=== PATIENT | male | born 1965 | race Caucasian/White ===

== ENCOUNTER 2021-01-01 14:46 | Emergency (ER) | payer BC, SELFPAY ==
[2021-01-01 14:50] VITALS: BP 174/117; PULSE 94; RESP 18; TEMP 37.2; O2SAT 99; BMI 28.5
--- NOTE | 2021-01-01 16:30 | ED.GENADULT ---
HPI - General Adult General Chief complaint: Extremity Injury, Lower Stated complaint: water in knee Time Seen by Provider: 01/01/21 16:10 Source: patient Mode of arrival: ambulatory Limitations: no limitations History of Present Illness HPI narrative: 55 y/o male with history of osteoarthritis of the right knee and history of knee effusion about 2 years ago who presents to the ER with 2 days of right knee swelling and pain, worse with ambulation and flexion. No fevers, no erythema or warmth of the joint. He has been taking Motrin without any improvement. His prior knee effusion was treated with NSAID and supportive care, no drainage. He denies any recent injury or trauma. No history of gout. He reports when he tries to ambulate his hamstring muscle spasms severely and makes it hard for him to walk. He has been using a cane to get around. MD complaint: swollen right knee with pain Onset (ago): day(s) (2) Location: right and lower extremity Radiation: non-radiation Severity: moderate and similar to prior episodes Severity scale (1-10): 4 Quality: aching Pain Consistency: intermittent Relieving factors: rest Exacerbating factors: movement Associated symptoms: denies other symptoms Treatments prior to arrival: NSAID Related Data Previous Rx's Medication Instructions Recorded cyclobenzaprine 10 mg PO TID PRN #7 tab 01/01/21 hydrocodone-acetaminophen 1 tab PO Q8H PRN #6 tab 01/01/21 indomethacin 75 mg PO DAILY #14 cap 01/01/21 Allergies Allergy/AdvReac Type Severity Reaction Status Date / Time No Known Allergies Allergy Verified 01/01/21 14:50 Review of Systems Review of Systems: Constitutional: No Fever, No Chills Respiratory: No Cough, No Sputum, No Wheezing, No dyspnea Gastrointestinal: No Nausea, No Vomiting, No abdominal Pain Musculoskeletal: + joint pain, + Myalgias Skin: No Skin Lesions, No rash Neuro: No Weakness, No Numbness Heme/Lymph: No Bruising, No Lymphadenopathy PMFSH Past Medical History Medical History (Updated 01/01/21 @ 16:30 by ALONZO Sauceda) No active medical problems Social History Social History Advance Directives: No Advance Directives Information Provided: Yes Physical Exam Vital Signs: Vital Signs: Last Vital Signs Temp 99.0 F 01/01/21 14:50 Pulse 94 01/01/21 14:50 Resp 18 06/23/21 14:50 BP 174/117 H 01/01/21 14:50 Pulse Ox 99 01/01/21 14:50 Body Mass Index 28.5 Appearance: Alert. Oriented X3. No acute distress. HEENT: normal inspection CVS: Normal heart rate and rhythm. Pulses normal. Respiratory: No respiratory distress. Skin: Skin warm and dry. Normal skin color. Normal skin turgor. No rashes. Extremities: right knee with suprapatellar swelling, no erythema or warmth. palpable effusion superiorly, pain with flexion past 90 degrees and full extension. No calf pain or tenderness, no erythema Neuro: Oriented X 3. No motor deficit. No sensory deficit. Ambulates with limping gait with use of cane Course Course Course Narrative: 55 y/o male presenting with recurrent right knee effusion, non-traumatic. Clinical exam does not support infection or gout. Patient declined XR's at this time. No arthrocentesis warranted. Will treat conservatively with NSAID, muscle relaxer, KONRAD wrap and PRN [place] for severe pain. He was encouraged to f/u with Orthopedics for further management. Patient agrees with plan. Critical Care Time Critical Care Time Critical Care Time: No Discharge Plan Discharge Clinical Impression: Effusion of knee joint right Patient Disposition: Home, Self-Care Instructions: Swollen Knee Joint (ED) Additional Instructions: Your exam is consistent with fluid on the knee. No signs of infection at this time. Use ice several times per day for 20 minutes at a time for the next 48 hours. Use KONRAD wrap for compression and support. Elevate you knee/leg when possible. Take medications as prescribed to help with pain and discomfort. Follow up with your Primary Care Doctor this week. Follow up with Orthopedics if the swelling and pain persist. If your pain worsens, or if you develop red, hot knee joint or fevers come back to the ER right away for further evaluation. Prescriptions: New indomethacin 75 mg capsule, extended release 75 mg PO DAILY Qty: 14 RF: 0 cyclobenzaprine 10 mg tablet 10 mg PO TID PRN (Reason: muscle spasm) Qty: 7 RF: 0 hydrocodone-acetaminophen 5-325 mg tablet 1 tab PO Q8H PRN (Reason: pain) Qty: 6 RF: 0 Referrals: Raúl Son MD [Physician] - 5 days (knee effusion)
== END 2021-01-01 17:20 | disposition home or self-care (01) ==
PROVIDERS: Emergency Provider Emergency Medicine
DX: M25.461 Effusion, right knee (principal)
CPT/HCPCS: 99283

== ENCOUNTER 2021-01-05 14:38 | Emergency (ER) | payer BC, SELFPAY ==
--- NOTE | ~2021-01-05 | US_ITS ---
EXAMINATION: US VENOUS ULTRASOUND WITH DOPPLER LOWER EXTREMITY, RIGHT CLINICAL INFORMATION: Swelling pain evaluate for DVT COMPARISON: None TECHNIQUE: Ultrasound of the deep veins is performed from the hip to the calf with compression sonography and color and pulse Doppler assessment. Spectral analysis with color-flow imaging is performed. FINDINGS: There is normal venous compression and respiratory variation and augmented flow. The visualized common femoral vein, superficial femoral vein, profunda femoral vein, popliteal vein, and the trifurcation region shows no evidence of deep venous thrombosis. However there is thrombus in the gastrocnemius vein. There is no significant popliteal fossa cyst. US/US venous duplex LE RT IMPRESSION: Thrombus noted in the right gastrocnemius vein This critical result was discussed with Peggy Littlejohn at approximately 4:20 PM on 01/05/2021 and it was ascertained that the content and urgency of the report was understood at the time of direct communication.
--- NOTE | ~2021-01-05 | XR_ITS ---
EXAMINATION: XR KNEE, RIGHT CLINICAL INFORMATION: Pain COMPARISON: None TECHNIQUE: Four views of the right knee. FINDINGS: No evidence for fracture or dislocation. There is an effusion present. Mild patellofemoral degeneration. The medial lateral joint spaces are fairly well-preserved. XR/XR knee RT 3V IMPRESSION: Positive joint effusion. No acute bony finding.
[2021-01-05 14:48] VITALS: BP 148/80; PULSE 88; RESP 16; TEMP 36.4; O2SAT 98; BMI 29.9
--- NOTE | 2021-01-05 15:38 | ED.LOWEXIN ---
HPI - Extremity Injury (Lower) General Chief Complaint: Extremity Injury, Lower <Violetta Ge NP - Last Filed: 01/05/21 17:04> Stated Complaint: R LEG INFLAMATION <RISA Casas Last Filed: 01/05/21 17:04> Time Seen by Provider: 01/05/21 15:09 <Violetta Ge NP - Last Filed: 01/05/21 17:04> Source: patient <RISA Casas Last Filed: 01/05/21 17:04> Mode of arrival: ambulatory <RISA Casas Last Filed: 01/05/21 17:04> Limitations: no limitations <RISA Casas Last Filed: 01/05/21 17:04> History of Present Illness HPI Narrative: 55-year-old male with a past medical history of prior right knee injury with subsequent knee effusion here with complaints of right knee pain and swelling in addition to right lower calf pain and swelling for the last week. he tells me he was seen here on Wednesday and was prescribed a muscle relaxants, anti-inflammatories and pain medication and also provided with a referral to Orthopedics. He tells me he has been using the medications, topical CBD, ice and a cane for ambulation with continued pain and swelling. He has not called Orthopedics for follow-up yet. He feels like his knee is improving but his right calf is more swollen and more painful. No shortness of breath or chest pain. No history of DVTs. <RISA Casas Last Filed: 01/05/21 17:04> Related Data Home Medications: Previous Rx's Medication Instructions Recorded cyclobenzaprine 10 mg PO TID PRN #7 tab 01/01/21 hydrocodone-acetaminophen 1 tab PO Q8H PRN #6 tab 01/01/21 indomethacin 75 mg PO DAILY #14 cap 01/01/21 apixaban [Eliquis DVT-PE Treat 30D See Rx Instructions .ROUTE 01/05/21 Start] .COMPLEX #74 ea <RISA Casas Last Filed: 01/05/21 17:04> Allergies/Adverse Reactions: Allergies Allergy/AdvReac Type Severity Reaction Status Date / Time No Known Allergies Allergy Verified 01/01/21 14:50 <Violetta Ge NP - Last Filed: 01/05/21 17:04> Review of Systems Review of Systems: Yes all other systems are reviewed and are negative <Violetta Ge NP - Last Filed: 01/05/21 17:04> Constitutional: Constitutional: Reports no additional constitutional complaints, Denies body ache(s), Denies chills, Denies fever(s), Denies headache(s) and Denies weakness <Violetta Ge NP - Last Filed: 01/05/21 17:04> Eyes: Eyes: Reports no additional eye complaints and Denies change in vision <Violetta Ge NP - Last Filed: 01/05/21 17:04> ENT: Reports system reviewed and no additional complaints, except as documented, Denies dizziness, Denies headache(s), Denies nasal congestion, Denies nasal discharge and Denies neck pain <Violetta Ge NP - Last Filed: 01/05/21 17:04> Cardiovascular: Cardiovascular: Reports no additional cardiovascular complaints, Denies chest pain, Reports leg edema and Denies dyspnea <Violetta Ge NP - Last Filed: 01/05/21 17:04> Respiratory: Respiratory: Reports no additional respiratory complaints, Denies cough and Denies dyspnea <Violetta Ge NP - Last Filed: 01/05/21 17:04> Gastrointestinal: Gastrointestinal: Reports no additional gastrointestinal complaints, Denies abdominal pain, Denies diarrhea, Denies nausea and Denies vomiting <Violetta Ge NP - Last Filed: 01/05/21 17:04> Genitourinary: Genitourinary: Denies urinary incontinence <Violetta Ge NP - Last Filed: 01/05/21 17:04> Musculoskeletal: Musculoskeletal: Reports no additional musculoskeletal complaints, Denies back pain, Reports arthralgias, Reports joint swelling, Denies neck pain, Denies numbness and Denies tingling <Violetta Ge NP - Last Filed: 01/05/21 17:04> Integumentary/Breasts: Skin/Breast: Reports system reviewed and no additional complaints, except as docu and Denies rash <Violetta Ge NP - Last Filed: 01/05/21 17:04> Neurologic: Reports system reviewed and no additional complaints, except as documented, Denies Abnormal speech present, Denies dizziness, Denies headache(s), Denies numbness, Denies tingling and Denies weakness <Violetta Ge NP - Last Filed: 01/05/21 17:04> [facility] Past Medical History Attestation statement: The following information was validated with the patient. <Violetta Ge NP - Last Filed: 01/05/21 17:04> Source: old records reviewed and nursing notes reviewed <Violetta Ge NP - Last Filed: 01/05/21 17:04> Medical History: Medical History No active medical problems <Violetta Ge NP - Last Filed: 01/05/21 17:04> Social History Social History: Social History Advance Directives: Yes Advance Directives Information Provided: No Advance Directives on File: No <Violetta Ge NP - Last Filed: 01/05/21 17:04> Physical Exam Vital Signs: Vital Signs: Last Vital Signs Temp 97.6 F 01/05/21 14:48 Pulse 74 01/05/21 18:16 Resp 14 01/05/21 18:16 BP 160/69 H 01/05/21 18:16 Pulse Ox 100 01/05/21 18:16 Body Mass Index 29.9 <Violetta Ge NP - Last Filed: 01/05/21 17:04> Vital Signs: Last Vital Signs Temp 97.6 F 01/05/21 14:48 Pulse 74 01/05/21 18:16 Resp 14 01/05/21 18:16 BP 160/69 H 01/05/21 18:16 Pulse Ox 100 01/05/21 18:16 Body Mass Index 29.9 <Santiago Walker NP - Last Filed: 01/05/21 18:23> Const: General: cooperative, healthy appearing, comfortable and no acute distress <Violetta Ge NP - Last Filed: 01/05/21 17:04> Orientation/consciousness: patient oriented x3 <Violetta Ge NP - Last Filed: 01/05/21 17:04> Limitations: no limitations <Violetta Ge NP - Last Filed: 01/05/21 17:04> HENMT: Head: Yes normal to inspection <Violetta Ge NP - Last Filed: 01/05/21 17:04> Ears: hearing grossly normal bilaterally <Violetta Ge NP - Last Filed: 01/05/21 17:04> General nose exam: Normal external nose present <Violetta Ge NP - Last Filed: 01/05/21 17:04> Face and sinus: Yes normal facial exam <Violetta Ge NP - Last Filed: 01/05/21 17:04> Mouth: Normal oral and palatal mucosa present <Violetta Ge NP - Last Filed: 01/05/21 17:04> Throat: Yes posterior oropharynx normal <Violetta Ge NP - Last Filed: 01/05/21 17:04> Eyes: General: appearance normal, both eyes and all related structures <Violetta Ge NP - Last Filed: 01/05/21 17:04> Pupils: Equal, round and reactive pupils present <Violetta Ge NP - Last Filed: 01/05/21 17:04> Neck: Neck: Yes normal visual inspection <Violetta Ge NP - Last Filed: 01/05/21 17:04> Chest: Chest palpation & inspection: normal inspection of the chest <Violetta Ge NP - Last Filed: 01/05/21 17:04> Resp: Effort & Inspection: normal respiratory effort <Violetta Ge NP - Last Filed: 01/05/21 17:04> Auscultation: clear to auscultation bilaterally <Violetta Ge NP - Last Filed: 01/05/21 17:04> Cardio: Rate: regular rate <Violetta Ge NP - Last Filed: 01/05/21 17:04> Rhythm: regular rhythm <Violetta Ge NP - Last Filed: 01/05/21 17:04> Peripheral pulses: Peripheral pulses 2+ throughout <Violetta Ge NP - Last Filed: 01/05/21 17:04> GI: Inspection: Yes normal to inspection <Violetta Ge NP - Last Filed: 01/05/21 17:04> Palpation (GI): Soft to palpation and nontender <Violetta Ge NP - Last Filed: 01/05/21 17:04> Auscultation: normal bowel sounds <Violetta Ge NP - Last Filed: 01/05/21 17:04> Back/Spine/Pelvis: Thoracic/Lumbar Spine: thoracic and lumbar spine normal to inspection <Violetta Ge NP - Last Filed: 01/05/21 17:04> Skin: General skin exam: no rashes or lesions noted <Violetta Ge NP - Last Filed: 01/05/21 17:04> Neuro: General: patient oriented x3, no focal motor deficits and normal sensation to monofilament <Violetta Ge NP - Last Filed: 01/05/21 17:04> Cranial nerves: Yes Equal, round and reactive pupils present <Violetta Ge NP - Last Filed: 01/05/21 17:04> Cognition (Neuro): normal cognition <Violetta Ge NP - Last Filed: 01/05/21 17:04> Speech: No Abnormal speech present <Violetta Ge NP - Last Filed: 01/05/21 17:04> Gait exam (Neuro): Normal gait present <Violetta Ge NP - Last Filed: 01/05/21 17:04> Motor exam (neuro): 5/5 motor strength present throughout <Violetta Ge NP - Last Filed: 01/05/21 17:04> Extrem: Other: To the right knee there is no effusion present. There is no warmth, redness noted. The patient is able to flex and extend the knee although it is painful. He does have swelling to the right posterior calf with pain and some scant edema noted around the right ankle. Palpable pulses distal. No reported paresthesias. <Violetta Ge NP - Last Filed: 01/05/21 17:04> General: Yes normal to inspection <Violetta Ge NP - Last Filed: 01/05/21 17:04> Course Course Course Narrative: 55-year-old male here with right knee and right calf swelling and pain for the last week with no known injury or trauma. Will check x-ray, ultrasound. - ultrasound shows a thrombus in the right gastroc vein. D/w with Dr Danielson attending. Patient will need 3 months of anticoagulation. Will check labs with renal function. Then if normal will give 30 days of eliquis. Patient will need additional 2 months from PCP. Lengthy discussion with patient about starting anticoagulation with risks versus benefits. Patient is agreeable. 1700-Sign out to [facility] RISA pending labs. <Violetta Ge NP - Last Filed: 01/05/21 17:04> Reevaluation(s) Reevaluation #1: labs overall stable. Does not require adjustment of anticoagulant. Prescription sent already again precaution indication follow-up return instructions provided. Stable for discharge. <Santiago Walker NP - Last Filed: 01/05/21 18:23> MDM - Extremity Injury (Lower) Medical Records Attestation: I reviewed the patient's medical records. <Violetta Ge NP - Last Filed: 01/05/21 17:04> Lab Data Attestation: I reviewed the patient's lab results. <Violetta Ge NP - Last Filed: 01/05/21 17:04> Result diagrams: : 01/05/21 16:40 01/05/21 16:40 <Violetta Ge NP - Last Filed: 01/05/21 17:04> Labs: Lab Results 01/05/21 01/05/21 01/05/21 Range/Units 16:40 16:40 16:40 WBC 7.9 (4.8-10.8) X10*3/uL RBC 4.21 L (4.60-5.80) X10*6/uL Hgb 13.5 L (14.0-18.0) g/dl Hct 39.5 L (42-52) % MCV 93.8 (80-98) fL MCH 32.1 (27.0-33.0) pg MCHC 34.2 (31.0-36.0) g/dl RDW 11.4 (11.0-16.0) % Plt Count 191 (160-400) X10*3/uL MPV 10.9 (9.4-12.4) fL Immature Gran % (Auto) 0.1 (0.0-0.4) % Neut % (Auto) 66.7 (45-73) % Lymph % (Auto) 21.2 (20-40) % [place] % (Auto) 10.0 (2-11) % Eos % (Auto) 1.5 (0-4) % Baso % (Auto) 0.5 (0-2) % Lymph # (Auto) 1.7 (1.2-4.9) X10*3/uL [place] # (Auto) 0.8 (0.1-1.2) X10*3/uL Eos # (Auto) 0.1 (0.0-0.4) X10*3/uL Baso # (Auto) 0.0 (0.0-0.2) X10*3/uL Abs Immat Gran (auto) 0.01 (0.00-0.03) X10*3/uL Absolute Neuts (auto) 5.3 (2.0-8.3) X10*3/uL Absolute Nucleated RBC 0.000 (0.0-0.012) X10*3/uL Nucleated RBC % (auto) 0.0 (0.0-0.2) /100WBC PT 12.6 (10.8-13.0) SEC INR 1.1 (0.9-1.1) Sodium Cancelled Potassium Cancelled Chloride Cancelled Carbon Dioxide Cancelled Anion Gap Cancelled BUN Cancelled Creatinine Cancelled Estim Creat Clear Calc Cancelled Estimated GFR Cancelled Random Glucose Cancelled Calcium Cancelled Total Bilirubin (0.0-1.0) mg/dL Direct Bilirubin (0.0-0.5) mg/dL AST (5-37) U/L ALT (0-40) U/L Alkaline Phosphatase (39-117) U/L Total Protein (6.5-8.0) g/dL Albumin (3.5-5.0) g/dL // Range/Units 16:40 WBC (4.8-10.8) X10*3/uL RBC (4.60-5.80) X10*6/uL Hgb (14.0-18.0) g/dl Hct (42-52) % MCV (80-98) fL MCH (27.0-33.0) pg MCHC (31.0-36.0) g/dl RDW (11.0-16.0) % Plt Count (160-400) X10*3/uL MPV (9.4-12.4) fL Immature Gran % (Auto) (0.0-0.4) % Neut % (Auto) (45-73) % Lymph % (Auto) (20-40) % [place] % (Auto) (2-11) % Eos % (Auto) (0-4) % Baso % (Auto) (0-2) % Lymph # (Auto) (1.2-4.9) X10*3/uL [place] # (Auto) (0.1-1.2) X10*3/uL Eos # (Auto) (0.0-0.4) X10*3/uL Baso # (Auto) (0.0-0.2) X10*3/uL Abs Immat Gran (auto) (0.00-0.03) X10*3/uL Absolute Neuts (auto) (2.0-8.3) X10*3/uL Absolute Nucleated RBC (0.0-0.012) X10*3/uL Nucleated RBC % (auto) (0.0-0.2) /100WBC PT (10.8-13.0) SEC INR (0.9-1.1) Sodium 141 Potassium 4.3 Chloride 104 Carbon Dioxide 28 Anion Gap 13 BUN 17 H Creatinine 0.93 Estim Creat Clear Calc 106.8 Estimated GFR > 60 Random Glucose 116 H Calcium 9.3 Total Bilirubin 0.3 (0.0-1.0) mg/dL Direct Bilirubin 0.2 (0.0-0.5) mg/dL AST 25 (5-37) U/L ALT 35 (0-40) U/L Alkaline Phosphatase 62 (39-117) U/L Total Protein 7.1 (6.5-8.0) g/dL Albumin 4.2 (3.5-5.0) g/dL <Violetta Ge NP - Last Filed: 01/05/21 17:04> Lab Results 01/05/21 01/05/21 01/05/21 Range/Units 16:40 16:40 16:40 WBC 7.9 (4.8-10.8) X10*3/uL RBC 4.21 L (4.60-5.80) X10*6/uL Hgb 13.5 L (14.0-18.0) g/dl Hct 39.5 L (42-52) % MCV 93.8 (80-98) fL MCH 32.1 (27.0-33.0) pg MCHC 34.2 (31.0-36.0) g/dl RDW 11.4 (11.0-16.0) % Plt Count 191 (160-400) X10*3/uL MPV 10.9 (9.4-12.4) fL Immature Gran % (Auto) 0.1 (0.0-0.4) % Neut % (Auto) 66.7 (45-73) % Lymph % (Auto) 21.2 (20-40) % [place] % (Auto) 10.0 (2-11) % Eos % (Auto) 1.5 (0-4) % Baso % (Auto) 0.5 (0-2) % Lymph # (Auto) 1.7 (1.2-4.9) X10*3/uL [place] # (Auto) 0.8 (0.1-1.2) X10*3/uL Eos # (Auto) 0.1 (0.0-0.4) X10*3/uL Baso # (Auto) 0.0 (0.0-0.2) X10*3/uL Abs Immat Gran (auto) 0.01 (0.00-0.03) X10*3/uL Absolute Neuts (auto) 5.3 (2.0-8.3) X10*3/uL Absolute Nucleated RBC 0.000 (0.0-0.012) X10*3/uL Nucleated RBC % (auto) 0.0 (0.0-0.2) /100WBC PT 12.6 (10.8-13.0) SEC INR 1.1 (0.9-1.1) Sodium Cancelled Potassium Cancelled Chloride Cancelled Carbon Dioxide Cancelled Anion Gap Cancelled BUN Cancelled Creatinine Cancelled Estim Creat Clear Calc Cancelled Estimated GFR Cancelled Random Glucose Cancelled Calcium Cancelled Total Bilirubin (0.0-1.0) mg/dL Direct Bilirubin (0.0-0.5) mg/dL AST (5-37) U/L ALT (0-40) U/L Alkaline Phosphatase (39-117) U/L Total Protein (6.5-8.0) g/dL Albumin (3.5-5.0) g/dL 01/05/21 Range/Units 16:40 WBC (4.8-10.8) X10*3/uL RBC (4.60-5.80) X10*6/uL Hgb (14.0-18.0) g/dl Hct (42-52) % MCV (80-98) fL MCH (27.0-33.0) pg MCHC (31.0-36.0) g/dl RDW (11.0-16.0) % Plt Count (160-400) X10*3/uL MPV (9.4-12.4) fL Immature Gran % (Auto) (0.0-0.4) % Neut % (Auto) (45-73) % Lymph % (Auto) (20-40) % [place] % (Auto) (2-11) % Eos % (Auto) (0-4) % Baso % (Auto) (0-2) % Lymph # (Auto) (1.2-4.9) X10*3/uL [place] # (Auto) (0.1-1.2) X10*3/uL Eos # (Auto) (0.0-0.4) X10*3/uL Baso # (Auto) (0.0-0.2) X10*3/uL Abs Immat Gran (auto) (0.00-0.03) X10*3/uL Absolute Neuts (auto) (2.0-8.3) X10*3/uL Absolute Nucleated RBC (0.0-0.012) X10*3/uL Nucleated RBC % (auto) (0.0-0.2) /100WBC PT (10.8-13.0) SEC INR (0.9-1.1) Sodium 141 Potassium 4.3 Chloride 104 Carbon Dioxide 28 Anion Gap 13 BUN 17 H Creatinine 0.93 Estim Creat Clear Calc 106.8 Estimated GFR > 60 Random Glucose 116 H Calcium 9.3 Total Bilirubin 0.3 (0.0-1.0) mg/dL Direct Bilirubin 0.2 (0.0-0.5) mg/dL AST 25 (5-37) U/L ALT 35 (0-40) U/L Alkaline Phosphatase 62 (39-117) U/L Total Protein 7.1 (6.5-8.0) g/dL Albumin 4.2 (3.5-5.0) g/dL <Santiago Walker NP - Last Filed: 01/05/21 18:23> Imaging Data knee x-ray: Attestation: I personally reviewed and interpreted this imaging study as follows: <Violetta Ge NP - Last Filed: 01/05/21 17:04> Radiologist's impression: EXAMINATION: XR KNEE, RIGHT CLINICAL INFORMATION: Pain COMPARISON: None TECHNIQUE: Four views of the right knee. FINDINGS: No evidence for fracture or dislocation. There is an effusion present. Mild patellofemoral degeneration. The medial lateral joint spaces are fairly well-preserved. XR/XR knee RT 3V IMPRESSION: Positive joint effusion. No acute bony finding. <Violetta Ge NP - Last Filed: 01/05/21 17:04> Venous US: Attestation: I personally reviewed and interpreted this imaging study as follows: <Violetta Ge NP - Last Filed: 01/05/21 17:04> Radiologist's impression: [address] [id number] ReportSigned Patient: Daniel Asher RMR#: [id number]: [id number]:[id number]/Sex: 55 / MADM Date: 01/05/21Loc: EDAttending Dr: Ordering Physician: VIOLETTA GE NP Date of Service: 01/05/21 Procedure(s): US venous duplex LE RT Accession Number(s): [id number] cc: VIOLETTA GE NP~ EXAMINATION: US VENOUS ULTRASOUND WITH DOPPLER LOWER EXTREMITY, RIGHT CLINICAL INFORMATION: Swelling pain evaluate for DVT COMPARISON: None TECHNIQUE: Ultrasound of the deep veins is performed from the hip to the calf with compression sonography and color and pulse Doppler assessment. Spectral analysis with color-flow imaging is performed. FINDINGS: There is normal venous compression and respiratory variation and augmented flow. The visualized common femoral vein, superficial femoral vein, profunda femoral vein, popliteal vein, and the trifurcation region shows no evidence of deep venous thrombosis. However there is thrombus in the gastrocnemius vein. There is no significant popliteal fossa cyst. US/US venous duplex LE RT IMPRESSION: Thrombus noted in the right gastrocnemius vein This critical result was discussed with Violetta Ge at approximately 4:20 PM on 01/05/2021 and it was ascertained that the content and urgency of the report was understood at the time of direct communication. <Violetta Ge NP - Last Filed: 01/05/21 17:04> Discharge Plan Discharge Clinical Impression: Effusion of knee joint right DVT (deep venous thrombosis) Qualifiers: DVT location: lower extremity Affected thrombotic vein of extremity: calf muscle vein Chronicity: acute Laterality: right Qualified Code(s): I82.461 - Acute embolism and thrombosis of right calf muscular vein <Violetta Ge NP - Last Filed: 01/05/21 17:04> Patient Disposition: Home, Self-Care <Violetta Ge NP - Last Filed: 01/05/21 17:04> Instructions: Apixaban (By mouth), Deep Vein Thrombosis (ED), Swollen Knee Joint (ED) <Violetta Ge NP - Last Filed: 01/05/21 17:04> Additional Instructions: Ice, elevation, compression You do have a blood clot in the vein in your calf muscle. You will need to take anticoagulation for 3 months. We are giving you a 1 month supply of the medication and you will need to follow up with the primary care doctor for additional 2 months. This medication will increase her risk of bleeding. If you fall and hit your head you need to seek care in the emergency department. If you notice black or bloody stools, bleeding gums or blood in your urine you should also seek care Use an electric razer for shaving. For pain no longer take any anti-inflammatory medications like indomethacin, Motrin, ibuprofen, naproxen, aleve or aspirin as it will increase your risk of bleeding. <Violetta Ge NP - Last Filed: 01/05/21 17:04> Prescriptions: [place] DVT-PE Treat 30D Start 5 mg (74 tabs) tablets,dose pack See Rx Instructions .ROUTE .COMPLEX Qty: 74 RF: 0 No Action indomethacin 75 mg capsule, extended release 75 mg PO DAILY Qty: 14 RF: 0 cyclobenzaprine 10 mg tablet 10 mg PO TID PRN (Reason: muscle spasm) Qty: 7 RF: 0 hydrocodone-acetaminophen 5-325 mg tablet 1 tab PO Q8H PRN (Reason: pain) Qty: 6 RF: 0 <Violetta Ge NP - Last Filed: 01/05/21 17:04> Referrals: Physician,None [Primary Care Provider] - 2 days <Violetta Ge NP - Last Filed: 01/05/21 17:04>
[2021-01-05 16:45] LABS: MANUAL DIFF FLAG NO
[2021-01-05 16:47] LABS: Basophils Percent Auto 0.5 % (0-2); Eosinophils Absolute Auto 0.1 X10*3/uL (0.0-0.4); Eosinophils Percent Auto 1.5 % (0-4); Hematocrit 39.5 % (42-52); Hemoglobin 13.5 g/dl (14.0-18.0); Imm Gran Abs Auto 0.01 X10*3/uL (0.00-0.03); Imm Gran Pct Auto 0.1 % (0.0-0.4); Lymphocytes Absolute Auto 1.7 X10*3/uL (1.2-4.9); Lymphocytes Percent Auto 21.2 % (20-40); Mean Corpuscular HGB Conc 34.2 g/dl (31.0-36.0); Mean Corpuscular Hemoglobin 32.1 pg (27.0-33.0); Mean Corpuscular Volume 93.8 fL (80-98); Mean Platelet Volume 10.9 fL (9.4-12.4); Monocytes Absolute Auto 0.8 X10*3/uL (0.1-1.2); Neutrophils Absolute Auto 5.3 X10*3/uL (2.0-8.3); Neutrophils Percent Auto 66.7 % (45-73); Platelet Count 191 X10*3/uL (160-400); Red Blood Count 4.21 X10*6/uL (4.60-5.80); Red Cell Distribution Width 11.4 % (11.0-16.0); White Blood Count 7.9 X10*3/uL (4.8-10.8)
[2021-01-05 16:52] LABS: INTERNATIONAL NORM RATIO 1.1 (0.9-1.1); Prothrombin Time 12.6 SEC (10.8-13.0)
[2021-01-05 17:22] LABS: Alanine Aminotransferase 35 U/L (0-40); Albumin Level 4.2 g/dL (3.5-5.0); Alkaline Phosphatase 62 U/L (39-117); Anion Gap 13 (12-20); Aspartate Amino Transferase 25 U/L (5-37); Bilirubin Direct 0.2 mg/dL (0.0-0.5); Bilirubin Total 0.3 mg/dL (0.0-1.0); Blood Urea Nitrogen 17 mg/dL (9-16); Calcium 9.3 mg/dL (8.4-10.2); Carbon Dioxide 28 mmol/L (22-29); Chloride 104 mmol/L (96-108); Creatinine Clr Calc Pharmacy 106.8; Estimated Glomerular Filt Rate > 60; Glucose Random 116 mg/dL (60-115); Potassium 4.3 mmol/L (3.3-5.1); Sodium 141 mmol/L (135-145); Total Protein 7.1 g/dL (6.5-8.0)
[2021-01-05 18:16] VITALS: BP 160/69; PULSE 74; RESP 14; O2SAT 100
[2021-01-05] MEDS: Apixaban 5 MG TABLET 10 MG PO (18:45)
== END 2021-01-05 18:55 | disposition home or self-care (01) ==
PROVIDERS: Nurse Practitioner Family; Emergency Provider Internal Medicine
DX: I82.461 Acute embolism and thrombosis of right calf muscular vein (principal); M79.661 Pain in right lower leg; R22.41 Localized swelling, mass and lump, right lower limb; Z79.01 Long term (current) use of anticoagulants
CPT/HCPCS: 36415; 73562; 80048; 80076; 85025; 85610; 93971; 99284

== ENCOUNTER → 2021-01-08 15:34 | Outpatient (BNVA) | payer BC, SELFPAY | PROVIDERS: Visit Provider Physician Assistant ==

== ENCOUNTER 2021-01-13 10:03 | Emergency (ER) | payer BC, SELFPAY ==
--- NOTE | ~2021-01-13 | XR_ITS ---
EXAMINATION: XR KNEE, RIGHT CLINICAL INFORMATION: Pain and swelling COMPARISON: Right knee x-ray January 05, 2021 TECHNIQUE: Four views of the right knee. FINDINGS: Again demonstrated is a moderate sized suprapatellar joint effusion. Otherwise only mild degenerative changes of the right knee are identified. No fracture is present. XR/XR knee RT 4V IMPRESSION: Stable knee radiographs demonstrating a joint effusion but no other significant abnormalities.
[2021-01-13 10:11] VITALS: BP 164/85; PULSE 96; RESP 16; TEMP 36.2; O2SAT 97; BMI 29.9
--- NOTE | 2021-01-13 10:39 | ED_ITS ---
HPI - Extremity Problem General Chief complaint: Extremity Problem Stated complaint: R LEG SENAIT KNEE BLOOD CLOT PAIN Time Seen by Provider: 01/13/21 10:08 History of Present Illness HPI Narrative: Patient complains of right knee pain and swelling, he is concerned as he was recently started on Eliquis for a right leg DVT. His pain now is not in the back of the leg it is in the knee joint, no shortness of breath no chest pain no fever no chills Related Data Previous Rx's Medication Instructions Recorded cyclobenzaprine 10 mg PO TID PRN #7 tab 01/01/21 hydrocodone-acetaminophen 1 tab PO Q8H PRN #6 tab 01/01/21 indomethacin 75 mg PO DAILY #14 cap 01/01/21 apixaban [Eliquis DVT-PE Treat 30D See Rx Instructions .ROUTE 01/05/21 Start] .COMPLEX #74 ea Allergies Allergy/AdvReac Type Severity Reaction Status Date / Time No Known Allergies Allergy Verified 01/14/21 12:16 Review of Systems Review of Systems: Positive for right knee pain and swelling Negatives are no fever no chills no dizziness no weakness no fainting no feeling faint no chest pain no shortness of breath no palpitations, no redness to the right knee or leg no numbness weakness or tingling Yes all other systems are reviewed and are negative PMFSH Past Medical History Source: nursing notes reviewed Medical History No active medical problems Social History Social History Current occupational status: employed 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 Physical Exam Vital Signs: Vital Signs: Last Vital Signs Temp 97.1 F 01/13/21 10:11 Pulse 96 01/13/21 10:11 Resp 16 01/13/21 10:11 BP 164/85 H 01/13/21 10:11 Pulse Ox 97 01/13/21 10:11 Body Mass Index 29.9 General appearance no distress Head is normocephalic atraumatic The neck is supple The chest is clear to auscultation bilateral with full symmetric equal breath sounds Heart no murmur The extremities the right knee has an obvious effusion it is swollen but it does have a good range of motion extends 180 it flexes past 90 degrees, he can bear weight but it is uncomfortable, there is no redness or warmth There is no redness to the skin, there is mild tenderness behind the knee joint no significant calf tenderness no calf swelling Course Course Course Narrative: Patient is compliant with Eliquis, there is no new calf swelling or pain in the calf, the chief complaint is all about the swollen right knee which has an obvious effusion but no signs of infection and patient is advised to follow with orthopedics for steroid injection and drainage if it continues to be swollen Discharge Plan Discharge Clinical Impression: Effusion of right knee, Osteoarthritis of right knee Patient Disposition: Home, Self-Care Additional Instructions: you were seen today for right knee pain, there is no evidence of joint infection The knee had a large fluid collection and we decided not to aspirate it now I advise follow closely with orthopedist Dr. Son for steroid injection into the knee Return any time any worse condition or any concerns You cannot use Motrin or Naprosyn while taking Eliquis as they may increase risk of bleeding, Tylenol is okay you can use extra-strength Tylenol Prescriptions: No Action Eliquis DVT-PE Treat 30D Start 5 mg (74 tabs) tablets,dose pack See Rx Instructions .ROUTE .COMPLEX Qty: 74 RF: 0 indomethacin 75 mg capsule, extended release 75 mg PO DAILY Qty: 14 RF: 0 cyclobenzaprine 10 mg tablet 10 mg PO TID PRN (Reason: muscle spasm) Qty: 7 RF: 0 hydrocodone-acetaminophen 5-325 mg tablet 1 tab PO Q8H PRN (Reason: pain) Qty: 6 RF: 0 Referrals: Raúl Son MD [Physician] - 2 days ( right knee effusion in arthritis) Interventions: ED Discharge Assessment Last Done: 01/13/21 11:36 Discharge Date/Time: 01/13/21 11:38
== END 2021-01-13 11:38 | disposition home or self-care (01) ==
PROVIDERS: Emergency Provider Emergency Medicine
DX: M25.461 Effusion, right knee (principal); M17.11 Unilateral primary osteoarthritis, right knee
CPT/HCPCS: 73564; 99283

== ENCOUNTER → 2021-01-14 12:04 | Outpatient (BNVA) | payer BC, SELFPAY | PROVIDERS: Visit Provider Physician Assistant | DX: M25.461 Effusion, right knee (principal) | CPT/HCPCS: 20610; J1040 ==

== ENCOUNTER 2021-02-17 10:05 | Outpatient (REF) | payer BC, SELFPAY ==
[2021-02-17 11:04] LABS: Cholesterol 214 mg/dL; HDL Cholesterol 48 mg/dL; LDL Cholesterol Calculated 108 mg/dl; Triglycerides 294 mg/dL
== END 2021-02-17 10:06 | disposition home or self-care (01) ==
LOC: HO.LAB 10:05
PROVIDERS: PCP Internal Medicine; Visit Provider Internal Medicine
DX: E78.00 Pure hypercholesterolemia, unspecified (principal)
CPT/HCPCS: 36415; 80061

== ENCOUNTER 2022-09-20 08:39 | Emergency (ER) | payer BC, SELFPAY ==
--- NOTE | ~2022-09-20 | XR_ITS ---
EXAMINATION: XR SHOULDER, LEFT CLINICAL INFORMATION: Dislocation COMPARISON: None TECHNIQUE: Three views of the left shoulder. FINDINGS: The humeral head is displaced anteriorly and inferiorly with respect to glenoid, with bony overlap. Question subtle depression of the posterior/lateral humeral head. Acromioclavicular joint is intact. XR/XR shoulder LT min 2V IMPRESSION: Anterior/inferior displacement of the proximal humerus with respect to glenoid. Question impaction injury of the posterior/lateral humeral head.
--- NOTE | ~2022-09-20 | XR_ITS ---
EXAMINATION: XR SHOULDER, LEFT CLINICAL INFORMATION: Status postreduction COMPARISON: None TECHNIQUE: Two views of the left shoulder. FINDINGS: Status post reduction. The humeral head now articulates with the glenoid. Limited evaluation of the glenohumeral joint space due to positioning/projection. Mild acromioclavicular arthritis. No definite proximal humeral fracture seen on the provided images. Subtle Hill-Sachs injury cannot be excluded on these radiographs. XR/XR shoulder LT min 2V IMPRESSION: Status reduction with humeral head articulate with the glenoid..
[2022-09-20 08:49] VITALS: BP 161/107; PULSE 72; RESP 20; O2SAT 100; BMI 28.5
[2022-09-20] MEDS: Acetaminophen 325 MG TABLET 975 MG PO (08:59)
[2022-09-20] MEDS: Lidocaine HCl 1 % 20 ML VIAL 30 ML SUBCUT (09:00)
[2022-09-20] MEDS: oxyCODONE HCl Immed Release 5 MG TABLET 10 MG PO (09:00)
--- NOTE | 2022-09-20 10:00 | ED_ITS ---
HPI - Extremity Problem General Chief complaint: Extremity Injury, Upper Stated complaint: Dislocated L shoulder Time Seen by Provider: 09/20/22 08:46 Source: patient Mode of arrival: ambulatory Limitations: no limitations History of Present Illness HPI Narrative: 57-year-old male healthy with with history of right shoulder dislocation presents to ED for left shoulder dislocation since 19:30 last night. Patient states last night he was cooking and he picked up a bucket of maple syrup and his right shoulder came out. patient decided to stay home Related Data Home Medications Medication Instructions Recorded Confirmed glucosamine sulf dipot 2 cap PO DAILY 02/19/21 02/19/21 chlr,msm,chond 550 mg-C 30 mg-jesus 1 mg capsule (Glucosamine Chondroitin) multivitamin 1 ea PO DAILY 02/19/21 02/19/21 Previous Rx's Medication Instructions Recorded meloxicam 15 mg tablet 15 mg PO DAILY #20 tabs 02/24/21 apixaban 5 mg tablet 5 mg PO BID #90 tabs 04/07/21 acetaminophen 325 mg capsule 325 mg PO QID PRN pain 7 days #28 09/20/22 caps oxycodone 5 mg capsule 5 mg PO TID PRN pain 3 days #9 caps 09/20/22 Allergies Allergy/AdvReac Type Severity Reaction Status Date / Time No Known Allergies Allergy Verified 02/17/21 09:09 Review of Systems Review of Systems: Shoulder dislocation Yes all other systems are reviewed and are negative [facility] Past Medical History Medical History (Updated 09/20/22 @ 11:37 by ALONZO Winter) Deep vein thrombosis No active medical problems Surgical History (Updated 02/19/21 @ 09:27 by Justice Ahmadi MD) No history of previous surgery Family History Family History Mother No problems noted. Father No problems noted. 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 Current occupational exposures/hazards: No Physical Exam Vital Signs: Vital Signs: Last Vital Signs Pulse 61 09/20/22 11:48 Resp 18 09/20/22 11:48 BP 158/96 H 09/20/22 11:48 Pulse Ox 98 09/20/22 11:48 O2 Del Method 09/20/22 11:48 BMI result Body Mass Index 28.5 Const: General: cooperative, healthy appearing, comfortable, no acute distress, well developed, alert, awake and Physically active Or ientation/consciousness: oriented to person, oriented to place, oriented to time and patient oriented x3 HEENT: Head: Yes normal to inspection, Yes No palpable skull fracture present, Yes normocephalic, Yes atraumatic and No abrasion Eyes: General: appearance normal, both eyes and all related structures Neck: Neck: Yes normal visual inspection, Yes full ROM, Yes no lymphadenopathy, Yes no meningeal signs, Yes trachea midline, Yes supple, No anterior neck swelling and No tender Chest: Chest palpation & inspection: normal inspection of the chest and normal palpation of entire chest wall Resp: Effort & Inspection: normal respiratory effort and able to speak in complete sentences Auscultation: clear to auscultation bilaterally Cardio: Jugular venous distension: no JVD Heart sounds: S1 normal heart sound present and S2 normal heart sound present GI: Inspection: Yes normal to inspection and No abdominal wall ecchymosis Palpation (GI): Soft to palpation, not firm, nontender, no guarding and not rigid : General: No CVA tenderness and Yes no CVA tenderness Back/Spine/Pelvis: Back: no CVA tenderness, No CVA tenderness and No back tenderness Skin: General skin exam: no rashes or lesions noted and elasticity normal Neuro: General: oriented to person, oriented to place, oriented to time, patient oriented x3, gait normal, tone normal, moves all extremities, Normal light touch and pain sensation, no meningeal signs, no focal motor deficits and CN's II-XI intact bilaterally Extrem: General: Yes normal to inspection and Yes full ROM Shoulder/upper arm images: 1. obvious deformity. positive for tenderness on palpation. Negative for erythema. Motor exam limited due to pain. Neurovascular exam intact Psych: Appearance: grossly normal, well kempt and not disheveled Course Course Course Narrative: x-ray ordered. Reevaluation(s) Reevaluation #1: X-ray shows anterior/ inferior dislocation. Posterior glenohumeral joint injection block was done. area on posterior glenohumeral joint cleaned with Betadine iodine. 5 mL of lidocaine 1% was used to make superficial wheel. then 20 ml of lidocaine 1% was injected posteriorly with size 20 needle. Patient before receive pain oral meds and oxygen before procedure. myself, Dr. Nelson, and ALONZO Garrido together reduced shoulder. It was very diffuclt reduction. Post reduction xray ordered. Time: 10:17 Reevaluation #2: status post reduction x-ray shows successful reduction. patient informed excessively to follow-up with primary care provider. Time: 11:18 Medications Administered Discontinued Medications Generic Name Dose Route Start Last Admin Trade Name Freq PRN Reason Stop Dose Admin Acetaminophen 975 mg 09/20/22 08:52 09/20/22 08:59 Acetaminophen 325 Mg Tablet PO 09/20/22 08:53 975 mg ONCE ONE Administration Ibuprofen 800 mg 09/20/22 08:52 09/20/22 09:01 Ibuprofen 800 Mg Tablet PO 09/20/22 08:53 Not Given ONCE ONE Lidocaine HCl 30 ml 09/20/22 08:57 09/20/22 09:00 Lidocaine Hcl 1 % 20 Ml Vial SUBCUT 09/20/22 08:58 30 ml ONCE ONE Administration Oxycodone HCl 10 mg 09/20/22 08:46 09/20/22 09:00 Oxycodone Hcl Immed Release 5 Mg Tablet PO 09/20/22 08:47 10 mg ONCE ONE Administration Medical Decision Making Medical Decision Making [facility] Narrative: 57-year-old male presents to the ED for left shoulder dislocation After picking up bucket of maple syrup. Differential Diagnosis Differential Diagnoses: The differential diagnosis associated with the presentation includes ( Shoulder dislocation, shoulder fracture) Independent Interpretation I performed an independent interpretation of an: Plain X-Ray Radiology Impression Discussion of test interpretation with radiology: I have reviewed the radiologist's reading. Prescription Management I considered prescription management with: Pain Medication Discharge Plan Discharge Clinical Impression: Dislocation of shoulder Patient Disposition: Home, Self-Care Instructions: Shoulder Dislocation (ED) Additional Instructions: you will be discharged with pain medication. You will need follow-up with orthopedic surgeon. keep shoulder in a sling. Return to the ED for shoulder dislocation, swelling of upper extremity, redness, red streaks, fever, chills, bluish black discoloration, or any other concerning symptoms. Prescriptions: New oxycodone 5 mg capsule 5 mg PO TID PRN (Reason: pain) 3 Days Qty: 9 0RF Rx Instructions: Partial Fill upon patient request. acetaminophen 325 mg capsule 325 mg PO QID PRN (Reason: pain) 7 Days Qty: 28 0RF No Action meloxicam 15 mg tablet 15 mg PO DAILY Qty: 20 0RF apixaban 5 mg tablet 5 mg PO BID Qty: 90 0RF multivitamin Powder In Packet 1 ea PO DAILY Glucosamine Chondroitin 550-30-1 mg Capsule 2 cap PO DAILY Referrals: [facility] [Provider Group] (LEft shoulder disclocation) Stand Alone Forms: Work/School Release Interventions: ED Discharge Assessment Last Done: 09/20/22 11:54 Discharge Date/Time: 09/20/22 12:02 Print Language: Czech
[2022-09-20 10:04] VITALS: BP 147/99; PULSE 67; RESP 20; O2SAT 98
[2022-09-20 11:48] VITALS: BP 158/96; PULSE 61; RESP 18; O2SAT 98
== END 2022-09-20 12:02 | disposition home or self-care (01) ==
PROVIDERS: Emergency Provider Student in an Organized Health Care Education/Training Program; PCP Internal Medicine
DX: S43.004A Unspecified dislocation of right shoulder joint, initial encounter (principal); X58.XXXA Exposure to other specified factors, initial encounter; Y93.9 Activity, unspecified; Y92.9 Unspecified place or not applicable; Y99.9 Unspecified external cause status; Z79.899 Other long term (current) drug therapy; Z87.891 Personal history of nicotine dependence
CPT/HCPCS: 73030; 99284

== ENCOUNTER 2023-03-31 08:00 | Emergency (ER) | payer BC, SELFPAY ==
--- NOTE | ~2023-03-31 | US_ITS ---
EXAMINATION: US VENOUS ULTRASOUND WITH DOPPLER LOWER EXTREMITY, LEFT CLINICAL INFORMATION: Pain and swelling history of DVT COMPARISON: None available. TECHNIQUE: Ultrasound of the deep veins is performed from the hip to the calf with compression sonography and color and pulse Doppler assessment. Spectral analysis with color-flow imaging is performed. FINDINGS: There is normal venous compression and respiratory variation and augmented flow. The visualized common femoral vein, superficial femoral vein, profunda femoral vein, popliteal vein, and the trifurcation region shows no evidence of deep venous thrombosis. There is no significant popliteal fossa cyst. Contralateral common femoral vein is patent. Fluid collection noted along the anterior left knee measuring 3.1 x 1.6 cm. If the patient's symptoms persist, followup ultrasound in 5 days 7 days might be of value to exclude proximal propagation from a non-visualized calf vein. US/US venous duplex LE IMPRESSION: 1. No DVT demonstrated in the left lower extremity. 2. Fluid collection noted along the anterior left knee measuring 3.1 x 1.6 cm.
--- NOTE | ~2023-03-31 | XR_ITS ---
EXAMINATION: XR KNEE, LEFT CLINICAL INFORMATION: Left knee pain COMPARISON: None available. TECHNIQUE: Four views of the left knee. FINDINGS: No acute visible fracture or dislocation. Mild narrowing of the medial femorotibial compartment. Joint spaces and alignment are otherwise maintained. Small knee joint effusion. Soft tissues are unremarkable. XR/XR knee LT 4V IMPRESSION: 1. No acute visible fracture or dislocation. 2. Mild narrowing of the medial femorotibial compartment. 3. Small knee joint effusion.
[2023-03-31 08:01] VITALS: BP 167/80; PULSE 68; RESP 18; TEMP 37; O2SAT 98; BMI 29.1
--- NOTE | 2023-03-31 10:22 | ED.GENADULT ---
HPI - General Adult General Chief complaint: Extremity Injury, Lower Stated complaint: l knee pain Time Seen by Provider: 03/31/23 10:13 Source: patient Mode of arrival: ambulatory Limitations: no limitations History of Present Illness HPI narrative: 58 y o male PMH DVT no longer on Elliquis, gout presenting for evaluation of nontraumatic L knee pain x2 days. Reports he woke up yesterday morning with 8/10 pain of the L knee and reports worsening of pain with ambulation and better with rest. Denies any trauma to the area. States it has been difficult to straighten and bend the knee secondary to pain. Took 800mg Ibuprofen this morning with some relief, now endorsing 3/10 pain of the L knee. Also reporting he had a leftover single tablet of Elliquis which he took this morning. Denies any fever, chills, nausea, vomiting, abdominal pain, chest pain, shortness of breath, dizziness, recent illness. Related Data Home Medications Medication Instructions Recorded Confirmed glucosamine sulf dipot 2 cap PO DAILY 02/19/21 02/19/21 chlr,msm,chond 550 mg-C 30 mg-jesus 1 mg capsule (Glucosamine Chondroitin) multivitamin 1 ea PO DAILY 02/19/21 02/19/21 Previous Rx's Medication Instructions Recorded meloxicam 15 mg tablet 15 mg PO DAILY #20 tabs 02/24/21 apixaban 5 mg tablet 5 mg PO BID #90 tabs 04/07/21 acetaminophen 325 mg capsule 325 mg PO QID PRN pain 7 days #28 09/20/22 caps oxycodone 5 mg capsule 5 mg PO TID PRN pain 3 days #9 caps 09/20/22 prednisone 50 mg tablet 50 mg PO DAILY 5 days #5 tabs 03/31/23 Allergies Allergy/AdvReac Type Severity Reaction Status Date / Time No Known Allergies Allergy Verified 03/31/23 08:07 Review of Systems Review of Systems: Constitutional : No Weight loss, No Fever, No Chills, No Fatigue, No Malaise ENT/Mouth : No sore throat, No Rhinorrhea Eyes: No Eye Pain, No Swelling, No Redness Cardiovascular : No Chest Pain, No SOB, No Dyspnea on Exertion, No Orthopnea, No Edema, No Palpitations Respiratory : No Cough, No Sputum, No Wheezing Gastrointestinal : No Nausea, No Vomiting, No Diarrhea, No Constipation, No abdominal Pain, No Hematochezia, No Melena Genitourinary : No Dysuria, No Urinary Frequency, No Hematuria, Musculoskeletal : +joint pain, No Myalgias, + Joint Swelling Skin : No Skin Lesions, No rash Neuro : No Weakness, No Numbness, No Dizziness, No Headache All other systems reviewed and are negative Yes all other systems are reviewed and are negative [facility] Past Medical History Attestation statement: The following information was validated with the patient. Source: old records reviewed and nursing notes reviewed Medical History (Updated 03/31/23 @ 10:55 by ALONZO Carter) Deep vein thrombosis No active medical problems Surgical History (Updated 02/19/21 @ 09:27 by Justice Ahmadi MD) No history of previous surgery Family History Family History Mother No problems noted. Father No problems noted. 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 Oriented X3.? No acute distress.? Head: Normocephalic, atraumatic, no step-offs or deformities Eyes: Pupils equal, round and reactive to light.? Neck: Normal inspection.? Neck supple.? CVS: Normal heart rate and rhythm.? Pulses normal.? Respiratory: No respiratory distress.? Breath sounds normal.? Skin: Skin warm and dry.? Normal skin color.? Normal skin turgor.? Extremities: No lower extremity edema.? No calf ttp. 5/5 strength to bilateral upper and lower extremities including L hip flexion/extension, and b/l dorsiflexion and plantar flexion. L knee flexion, extension strength 4/5 likely secondary d/t pain. Decreased ROM of L knee secondary to pain. No overlying skin changes to the L knee. Edema noted with ?effusion of the L knee at the superiolateral aspect with TTP. Also TTP along the L popliteal fossa. 2+ DP, PT, popliteal pulses b/l. Gross sensation intact. Back: No midline tenderness, no C-spine tenderness, full range of motion, no CVA tenderness bilaterally Neuro: Oriented X 3.? No motor deficit.? No sensory deficit. CN 2-12 intact Course Reevaluation(s) Reevaluation #1: X-ray of knee with no acute visible fractures or dislocations. Mild narrowing of the medial femorotibial compartment. Small knee joint effusion. Will give prednisone, Chris wrap for this. Venous study with no DVT in the left lower extremity. Fluid collection noted along the anterior left knee measuring 3.1 x 1.6 cm. Will discharge him home with PCP follow-up. May require ortho. Educated patient on diagnosis and treatment plan, answered all question, patient verbalizes understanding. At this time patient will be discharged home, advised to return with new or worsening symptoms. Educated on worrisome signs and symptoms and when to return. At this time I feel comfortable discharge home. Time: 11:58 Medical Decision Making Medical Decision Making [facility] Narrative: 1030 58 y o male presenting for evaluation of atraumatic L knee pain x2 days. PE significant for No lower extremity edema.? No calf ttp. 5/5 strength to bilateral upper and lower extremities including L hip flexion/extension, and b/l dorsiflexion and plantar flexion. L knee flexion, extension strength 4/5 likely secondary d/t pain. Decreased ROM of L knee secondary to pain. No overlying skin changes to the L knee. Edema noted with ?effusion of the L knee at the superiolateral aspect with TTP. Also TTP along the L popliteal fossa. 2+ DP, PT, popliteal pulses b/l. Gross sensation intact. Possible inflammatory arthritis vs reactive arthritis vs gout versus pseudogout vs Bakers cyst. Less likely septic joint, no overlying erythema, no known trauma, otherwise non-toxic appearing. No acute threat to life of limb. Neurovascuarly intact. No calf TTP b/l, I am not concerned for DVT or arterial occlusion Plan: Imaging, reassess Differential Diagnosis Differential Diagnoses: The differential diagnosis associated with the presentation includes Possible inflammatory arthritis vs reactive arthritis vs gout versus pseudogout vs Bakers cyst. Less likely septic joint, no overlying erythema, no known trauma, otherwise non-toxic appearing. No acute threat to life of limb. Neurovascuarly intact. No calf TTP b/l, I am not concerned for DVT or arterial occlusion Admission/Observation Consideration of admission/observation: Escalation of care including admission/observation considered unlikely Independent Interpretation I performed an independent interpretation of an: Plain X-Ray and Ultrasound (US/US venous duplex LE LT IMPRESSION: 1. No DVT demonstrated in the left lower extremity. 2. Fluid collection noted along the anterior left knee measuring 3.1 x 1.6 cm. ) Radiology Impression Discussion of test interpretation with radiology: I have reviewed the radiologist's reading. Critical Care Time Critical Care Time Critical Care Time: No Discharge Plan Discharge Clinical Impression: Knee effusion Patient Disposition: Home, Self-Care Instructions: Swollen Knee Joint (ED) Additional Instructions: Take your medications as prescribed. If you were prescribed antibiotics today, it is important that you take your medication to their entirety, do not skip any doses, do not finish them early. Follow-up with your primary care provider this week. Return to the emergency department with new or worsening symptoms. Such as fevers, chills, chest pain, shortness of breath, nausea, vomiting, dizziness, headache, vision changes, lethargy In case of emergency call 911 US/US venous duplex LE LT IMPRESSION: 1. No DVT demonstrated in the left lower extremity. 2. Fluid collection noted along the anterior left knee measuring 3.1 x 1.6 cm. Prescriptions: New prednisone 50 mg tablet 50 mg PO DAILY 5 Days Qty: 5 0RF No Action meloxicam 15 mg tablet 15 mg PO DAILY Qty: 20 0RF apixaban 5 mg tablet 5 mg PO BID Qty: 90 0RF multivitamin Powder In Packet 1 ea PO DAILY Glucosamine Chondroitin 550-30-1 mg Capsule 2 cap PO DAILY oxycodone 5 mg capsule 5 mg PO TID PRN (Reason: pain) 3 Days Qty: 9 0RF Rx Instructions: Partial Fill upon patient request. acetaminophen 325 mg capsule 325 mg PO QID PRN (Reason: pain) 7 Days Qty: 28 0RF Referrals: [facility] [place] [facility] Sur[facility] [Provider Group] - 3 days Msiael Maya MD [Primary Care Provider] - 1 week Stand Alone Forms: Work/School Release
[2023-03-31 11:06] VITALS: BP 162/104; PULSE 54; RESP 14; O2SAT 100
[2023-03-31 12:00] VITALS: PULSE 60; RESP 16; TEMP 36.7; O2SAT 99
== END 2023-03-31 12:25 | disposition home or self-care (01) ==
PROVIDERS: Emergency Provider Emergency Medicine; PCP Internal Medicine
DX: M25.462 Effusion, left knee (principal); R60.0 Localized edema; M25.562 Pain in left knee; Z87.891 Personal history of nicotine dependence; Z79.899 Other long term (current) drug therapy
CPT/HCPCS: 73564; 93971; 99284

== ENCOUNTER 2023-08-15 11:02 | Emergency (ER) | payer BC, SELFPAY ==
[2023-08-15 11:14] VITALS: BP 168/98; PULSE 69; RESP 17; TEMP 36.4; O2SAT 97; BMI 28.4
--- NOTE | 2023-08-15 11:16 | ED.GENADULT ---
HPI - General Adult General Chief complaint: Eye Problems Stated complaint: Eye irritation Time Seen by Provider: 08/15/23 11:47 Source: patient Mode of arrival: ambulatory Limitations: no limitations History of Present Illness HPI narrative: 58-year-old male with pmhx significant for DVT on eliquis presents to the ED today for evaluation of left eye pain/irritation x5 days. Patient states that he was working underneath a car when road salt fell into his left eye. He admits to washing the eye out immediately. Since this time he has had redness, irritation, pain, white discharge from the eye along with morning crusting. Denies trauma/injury/blow to the eye. Does not wear corrective lenses. States that he has not seen an eye doctor since the late when he was prescribed glasses and has not worn them since. Denies fever, chills, vision change including blurred or double vision, N/V. Related Data Home Medications Medication Instructions Recorded Confirmed glucosamine sulf dipot 2 cap PO DAILY 02/19/21 02/19/21 chlr,msm,chond 550 mg-C 30 mg-jesus 1 mg capsule (Glucosamine Chondroitin) multivitamin 1 ea PO DAILY 02/19/21 02/19/21 Previous Rx's Medication Instructions Recorded meloxicam 15 mg tablet 15 mg PO DAILY #20 tabs 02/24/21 apixaban 5 mg tablet 5 mg PO BID #90 tabs 04/07/21 acetaminophen 325 mg capsule 325 mg PO QID PRN pain 7 days #28 09/20/22 caps oxycodone 5 mg capsule 5 mg PO TID PRN pain 3 days #9 caps 09/20/22 prednisone 50 mg tablet 50 mg PO DAILY 5 days #5 tabs 03/31/23 polymyxin B sulfate 10,000 1 drp ophthalmic (eye) Q3H 7 days 08/15/23 unit-trimethoprim 1 mg/mL eye drops #10 mL Allergies Allergy/AdvReac Type Severity Reaction Status Date / Time No Known Allergies Allergy Verified 03/31/23 08:07 Review of Systems Review of Systems: Constitutional: No fever, chills, fatigue, night sweats, weight changes ENT/Mouth: No ear pain, hearing loss, nasal congestion, sinus pain, rhinorrhea, sore throat Eyes: +eye pain/irritation, +redness, No swelling, vision changes, discharge Cardio: No chest pain, palpitations, GARDNER, orthopnea, peripheral edema Pulm: No SOB, cough, sputum, wheezing, dyspnea, hemoptysis GI: No nausea, vomiting, hematemesis, abdominal pain, diarrhea, constipation, hematochezia, melena : No irregular bleeding, dysuria, frequency, urgency, hesitancy, hematuria, flank pain, urinary flow changes, urinary incontinence or retention MSK: No back pain, neck pain, joint pain, myalgias Skin: No lesions, rashes Neuro: No weakness, numbness, paresthesias, LOC, dizziness, headache All other systems reviewed and are negative. [facility] Past Medical History Attestation statement: The following information was validated with the patient. Source: old records reviewed and nursing notes reviewed Medical History Deep vein thrombosis No active medical problems Surgical History No history of previous surgery Family History Family History Mother No problems noted. Father No problems noted. 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 Current occupational exposures/hazards: No Physical Exam ED Vital Signs: Vital Signs - 24 hr 08/15/23 11:14 Temperature 97.5 F Pulse Rate 69 Respiratory Rate 17 Blood Pressure 168/98 H Pulse Oximetry 97 Oxygen Delivery Method Room Air BMI result Body Mass Index 28.4 Hypertensive, otherwise wnl Const General: cooperative, healthy appearing, no acute distress, alert and awake Orientation/consciousness: patient oriented x3 Limitations: no limitations HENMT Head: Yes normal to inspection, Yes normocephalic and Yes atraumatic Eyes Other: + refer to photos below + No periorbital edema or eyelid edema. multiple skin tags noted below left lower eyelid. Left eye with erythema and edema noted to the lateral aspect. No hyphema. No active bleeding or discharge. EOMs intact without entrapment or pain. + no fluorescein uptake on fluorescein examination to indicate an abrasion or foreign body. No visible foreign body. + visual weaver by confrontation intact + IOP 15 in right eye and 20 in left eye + pH 7 Periorbital: periorbital findings normal Eyelids: Yes eyelids normal Pupils: Equal, round and reactive pupils present EOM: EOMs intact bilaterally Neck Neck: Yes normal visual inspection, Yes full ROM and Yes no lymphadenopathy Resp Effort & Inspection: normal respiratory effort Auscultation: clear to auscultation bilaterally Cardio Rate: regular rate Rhythm: regular rhythm Skin General skin exam: no rashes or lesions noted Neuro General: patient oriented x3 and gait normal Cranial nerves: Yes Equal, round and reactive pupils present, Yes Normal accommodation reflex present and Yes Bilaterally intact EOM present Extrem General: Yes normal to inspection Course Course Course Narrative: RME: 58 yold male presents to the ED for left eye irration since wednesday after doing car work road salt got into the while under car doing work. Eye redness and irratriont with clear discharge. vision normal. Reevaluation(s) Reevaluation #1: 1300-- pH of left eye 7. IOP right eye 15. IOP left eye 20 > no concern for acute glaucoma. On fluorescein stain, there is no uptake to suggest corneal abrasion, foreign body. >> given normal pH and the event occurring 5 days ago, there is extremely low suspicion of chemical injury to eye. Visual acuity 20/70 in left eye however eye is excessively tearing and patient has not been wearing his corrective lenses for almost 30 years. He does not report blurred vision, double vision or vision loss. visual weaver by confrontation are still intact. Likely conjunctival irritation vs conjunctivitis. Will send erythromycin to pharmacy and plan for ophthalmology follow up for further examination. >> Patient has remained stable throughout ED visit today. Discussed worrisome s/sx and when to return to the ED. All questions answered at this time. Patient is agreeable with disposition and stable for discharge. Medications Administered Discontinued Medications Generic Name Dose Route Start Last Admin Trade Name Freq PRN Reason Stop Dose Admin Tetracaine HCl 3 drop 08/15/23 11:18 08/15/23 12:02 Tetracaine Hcl/Pf 0.5% Oph Gris 4 Ml Drops EYE-LEFT 08/15/23 11:19 Not Given ONCE ONE Procedures FB Removal Eye Time Out performed: Yes Location: eye (L) Foreign body: other (chemical. no evidence of FB on exam) Evidence of corneal penetration: No Procedure performed under: direct visualization with magnification Post-procedure medication: ophthalmic antibiotic Patient tolerated procedure: well Medical Decision Making Medical Decision Making MDM Narrative: 58-year-old male with pmhx significant for DVT on eliquis presents to the ED today for evaluation of left eye pain/irritation x5 days. Patient hypertensive to 168/98, vitals otherwise wnl. Patient is nontoxic appearing and in NAD. On exam, left eye without periorbital edema or eyelid edema. multiple skin tags noted below left lower eyelid. Left eye with erythema and edema noted to the lateral aspect. No hyphema. No active bleeding or discharge. EOMs intact without entrapment or pain. no fluorescein uptake on fluorescein examination to indicate an abrasion or foreign body. No visible foreign body. visual weaver by confrontation intact. Clinical concern for ocular foreign body, corneal abrasion, conjunctivitis, subconjunctival hemorrhage, pterygium. Unlikely corneal ulcer, glaucoma, hyphema, blowout fracture, globe rupture. Plan for tetracaine, fluorescine exam, pH testing, and IOP. Differential Diagnosis Differential Diagnoses: The differential diagnosis associated with the presentation includes As above. Admission/Observation Not indicated. External Record Review External record reviewed: Inpatient record Prescription Management I considered prescription management with: Pain Medication and Antibiotic Social Determinants Patient?s care significantly limited by Social Determinants of Health including: Other Social Determinant of Health Critical Care Time Critical Care Time Critical Care Time: No Discharge Plan Discharge Clinical Impression: Acute left eye pain, Eye swelling, left Patient Disposition: Home, Self-Care Instructions: Eye Pain (ED) Additional Instructions: The pH of your eyes are normal. There are no signs of corneal abrasion, trauma, or foreign body with fluorescein dye. Your eye pressures are normal. Erythromycin eye ointment has been sent to your pharmacy. This is a topical antibiotic. Please apply this to your left eye twice daily. You may use [id number] saline eye drops to help with any irritation. You have also been provided a referral to an direct marketing representative, Dr. Davis. Please follow-up with him this week. Call their office to make an appointment. They will not call you. Prescriptions: New polymyxin B sulf-trimethoprim 10,000 unit- 1 mg/mL drops 1 drp ophthalmic (eye) Q3H 7 Days Qty: 10 0RF Rx Instructions: while awake; do not exceed 6 doses in 24 hours No Action meloxicam 15 mg tablet 15 mg PO DAILY Qty: 20 0RF apixaban 5 mg tablet 5 mg PO BID Qty: 90 0RF multivitamin Powder In Packet 1 ea PO DAILY Glucosamine Chondroitin 550-30-1 mg Capsule 2 cap PO DAILY oxycodone 5 mg capsule 5 mg PO TID PRN (Reason: pain) 3 Days Qty: 9 0RF Rx Instructions: Partial Fill upon patient request. acetaminophen 325 mg capsule 325 mg PO QID PRN (Reason: pain) 7 Days Qty: 28 0RF prednisone 50 mg tablet 50 mg PO DAILY 5 Days Qty: 5 0RF Referrals: Daniel Davis [Physician] - 5 days Stand Alone Forms: Work/School Release Interventions: ED Discharge Assessment Last Done: 08/15/23 13:20 Discharge Date/Time: 08/15/23 13:20
== END 2023-08-15 13:20 | disposition home or self-care (01) ==
PROVIDERS: Emergency Provider Student in an Organized Health Care Education/Training Program; PCP Internal Medicine
DX: H57.12 Ocular pain, left eye (principal); R22.0 Localized swelling, mass and lump, head; Z87.891 Personal history of nicotine dependence; Z79.899 Other long term (current) drug therapy
CPT/HCPCS: 99283; 99284

== ENCOUNTER → 2024-03-21 10:08 | Outpatient (RCR) | payer BC, SELFPAY ==
[2021-02-19 09:07] VITALS: BP 149/92; PULSE 84; RESP 14; TEMP 36.1; O2SAT 96; BMI 28.8
--- NOTE | 2021-02-19 09:14 | P.CNHO_ITS ---
Subjective - Subjective Chief complaint: Consult for right lower extremity DVT. Patient: new to practice Consult date: 02/19/21 Requesting Physician: Dr. Smith Primary Care Provider: Misael Maya MD Medical Summary: DIAGNOSIS: RIGHT LOWER EXTREMITY DVT. ULTRASOUND ON 01/05. CURRENT THERAPY: ELIQUIS 5 MG P.O. B.I.D. HPI - Consult Narrative Reason for consult: Consult for R LE, DVT. Narrative: Daniel Asher is a pleasant 56 year old gentleman, who tells me that he works in [place]. He has a [address] and coming every day. He has been doing this for 6 years. Around 01/01 noted pain and swelling of his right knee. This gradually worsened. It became incredibly painful. He tried working through it but he could not. On 01/05, he went to the emergency room. U/S of right leg 01/05: IMPRESSION: Thrombus noted in the right gastrocnemius vein. He was started on Eliquis. He was also noted to have a knee effusion. 25 cc of fluid were taken out on 01/[address] Son. A cortisone injection was given at the same time. The knee was still painful. He then got meloxicam. That has helped with swelling and discomfort in the back of the leg. ROS: He has good energy level. No fever nor chills. Appetite is fine. Denies weight loss. No headache no dizziness. He denies any chest pain or trouble breathing. No abdominal pain nausea vomiting heartburn indigestion. Sometimes he gets belly pain for related to stress. His bowels are working without any gross blood in it. He has discussed colon screening. He is going to do Cologuard test. Denies any dysuria or hematuria. He has some pain in his right knee related to arthritis. Leg feels a little weak since the DVT. He does have history of depression. No rashes not pruritus. Family history: No known history of thromboembolism in the family. His dad had coronary artery disease. Mom had arthritis. 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 He works in [place]. He is . Has no children. He quit smoking 17 years ago. He drinks 2 drinks a day. Review of Systems - Constitutional Reports no additional constitutional complaints, Denies fatigue, Denies malaise, Denies poor appetite, Denies weight loss - Eyes Reports no additional eye complaints - ENT Reports no additional ear, nose, mouth, and throat complaints - Cardiovascular Reports no additional cardiovascular complaints - Respiratory Reports no additional respiratory complaints - Gastrointestinal Reports no additional gastrointestinal complaints - Genitourinary Genitourinary: Reports no additional male genitourinary complaints - Musculoskeletal Reports no additional musculoskeletal complaints Comments: Right knee pain. - Integumentary/Breasts Skin/Breast: Reports no additional skin complaints - Neurologic Reports no additional neurologic complaints - Psychiatric Reports no additional psychiatric complaints - Endocrine Reports no additional endocrine complaints - Hematologic/Lymphatic Reports no additional hematologic/lymphatic complaints - Allergic/Immunologic Reports no additional allergic/immunologic complaints Oncology Screenings - ECOG Performance Status ECOG Performance Status: 0 PMFSH Medical History: Medical History (Last Reviewed 02/19/21 @ 09:09 by Mayte Newsome) Deep vein thrombosis Effusion, right knee No active medical problems Functional capacity: independent ambulation Patient : No Family History: Family History (Last Reviewed 02/19/21 @ 09:09 by Mayte Newsome) Mother No problems noted. Father No problems noted. Surgical History: Surgical History (Last Reviewed 02/19/21 @ 09:09 by Mayte Newsome) No history of previous surgery Social History: Social History (Last Updated 02/19/21 @ 09:10 by Mayte Newsome) Living Situation History: Housing: House Alcohol History: Alcohol intake: current Alcohol History Details: Alcohol intake frequency: 0-2 drinks per day Tobacco History: Patient Tobacco Use Status: Former Tobacco user Patient Tobacco Use Status comment: 20 years ago Tobacco use type: Cigarette Cigarette Packs Per Day: 2 Smoke Quit Date: 2003 e-Cigarette/Vaping Use: Never Used Substance Use History: Use of substances other than those prescribed or required for medical reasons : No Nutrition Assessment: Patient : No Occupation Assessmet: Current occupational status: employed 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 Current occupational exposures/hazards: No Home Medications and Allergies Home Medications Medication Instructions Recorded Confirmed Type glucosamine sulf dipot 2 cap PO DAILY 02/19/21 02/19/21 History chlr,msm,chond 550 mg-C 30 mg-jesus 1 mg capsule (Glucosamine Chondroitin) multivitamin 1 ea PO DAILY 02/19/21 02/19/21 History Allergies Allergy/AdvReac Type Severity Reaction Status Date / Time No Known Allergies Allergy Verified 02/17/21 09:09 Physical Exam Vital signs: Vital Signs Temp 97.0 F 02/19/21 09:07 Pulse 84 02/19/21 09:07 Resp 14 02/19/21 09:07 BP 149/92 H 02/19/21 09:07 Pulse Ox 96 02/19/21 09:07 Intake & Output 02/18/21 02/19/21 02/19/21 18:59 06:59 18:59 Other: Weight 93.7 kg [place] Weight in Grams 17402 Weight 93.7 kg - Constitutional Present: no acute distress - Routine HEENT Exam Head: Present: normal inspection ENT: Present: mucous membranes moist - Routine Respiratory Exam Present: CTAB - Routine Cardiovascular Exam Cardiovascular: Present: RRR, S1, S2. Absent: S3, S4 - Routine Extremities Exam Present: nontender - Detailed Neurological Exam: Coma Scale Eye Opening: Spontaneous (4) Verbal Response: Oriented (5) Motor Response: Obeys commands (6) [place] Coma Scale Total: 15 - Routine Psychiatric Exam Present: depressed Hem/Onc Consult Result - Labs CBC & Chem 7: 02/19/21 10:00 02/19/21 10:00 Assessment and Plan (1) Deep vein thrombosis Status: Acute This is a pleasant 56-year-old gentleman who was noted to have a right lower extremity DVT, 01/05. U/S of right leg 01/05: IMPRESSION: Thrombus noted in the right gastrocnemius vein. He was started on Eliquis. His leg swelling has almost resolved. His DVT could have been provoked by his daily trip to [place]. However in view of his young age and underlying hypercoagulable state is a possibility. LFTs today 0.5/56/35/62. PLAN: I will proceed with the hypercoagulable workup. Will check D-dimer level: 253 today. Will check an ultrasound of the right leg in 3 months time to assess for clot resolution. Will decide about the duration of anticoagulation therapy based upon the above workup. All his questions were answered to his satisfaction. He will return in 3 months for a follow-up. Thank you, CC: Dr. Smith
[2021-02-19 10:15] LABS: MANUAL DIFF FLAG NO
[2021-02-19 10:19] LABS: Basophils Percent Auto 0.4 % (0-2); Eosinophils Absolute Auto 0.1 X10*3/uL (0.0-0.4); Eosinophils Percent Auto 2.6 % (0-4); Hematocrit 41.2 % (42-52); Hemoglobin 13.8 g/dl (14.0-18.0); Imm Gran Abs Auto 0.01 X10*3/uL (0.00-0.03); Imm Gran Pct Auto 0.2 % (0.0-0.4); Lymphocytes Absolute Auto 1.4 X10*3/uL (1.2-4.9); Lymphocytes Percent Auto 29.5 % (20-40); Mean Corpuscular HGB Conc 33.5 g/dl (31.0-36.0); Mean Corpuscular Hemoglobin 31.9 pg (27.0-33.0); Mean Corpuscular Volume 95.4 fL (80-98); Mean Platelet Volume 11.5 fL (9.4-12.4); Monocytes Absolute Auto 0.3 X10*3/uL (0.1-1.2); Monocytes Percent Auto 6.7 % (2-11); Neutrophils Absolute Auto 2.8 X10*3/uL (2.0-8.3); Neutrophils Percent Auto 60.6 % (45-73); Platelet Count 192 X10*3/uL (160-400); Red Blood Count 4.32 X10*6/uL (4.60-5.80); Red Cell Distribution Width 12.2 % (11.0-16.0); White Blood Count 4.6 X10*3/uL (4.8-10.8)
[2021-02-19 10:28] LABS: D Dimer 253 NG/ML
[2021-02-19 11:30] LABS: Alanine Aminotransferase 62 U/L (0-40); Albumin Level 4.4 g/dL (3.5-5.0); Alkaline Phosphatase 50 U/L (39-117); Anion Gap 14 (12-20); Aspartate Amino Transferase 35 U/L (5-37); Bilirubin Total 0.5 mg/dL (0.0-1.0); Blood Urea Nitrogen 12 mg/dL (9-16); Calcium 9.4 mg/dL (8.4-10.2); Carbon Dioxide 24 mmol/L (22-29); Chloride 105 mmol/L (96-108); Creatinine Clr Calc Pharmacy 112.1; Estimated Glomerular Filt Rate > 60; Glucose Random 208 mg/dL (60-115); Potassium 4.3 mmol/L (3.3-5.1); Sodium 139 mmol/L (135-145); Total Protein 6.9 g/dL (6.5-8.0)
--- NOTE | 2021-02-19 15:43 | MHC.HEMONCMA ---
Patient came in for a consult today, states he is tired. Clinical summary was reviewed and updated. Patient had labs and will return in 2 months for a follow up.
[2021-02-20 13:32] LABS: Hexagonal Phase Neutralization WEAKLY POSITIVE (NEGATIVE); PTT (LAC) Screen 48 sec (< OR = 40); Thrombin Clotting Time 17 sec (13-19)
[2021-02-20 16:16] LABS: Homocysteine 9.4 umol/L (<11.4)
[2021-02-23 21:25] LABS: Protein C Activity 182 % (70-180); Protein S Activity rflx Tot&Fr 149 % (70-150)
[2021-02-24 11:37] LABS: Cardiolipin IgG Ab <2.0 GPL-U/mL; Cardiolipin IgM Ab 2.1 MPL-U/mL
[2021-02-24 20:46] LABS: Anti-Thrombin III Antigen 86 % (80-120)
== END | disposition home or self-care (01) ==
LOC: HO.ONC 02-19 08:58
PROVIDERS: PCP Internal Medicine; Referring Provider Internal Medicine; Visit Provider Internal Medicine Medical Oncology
DX: I82.461 Acute embolism and thrombosis of right calf muscular vein (principal); Z79.01 Long term (current) use of anticoagulants
CPT/HCPCS: 36415; 80053; 81240; 81241; 83090; 85025; 85301; 85302; 85303; 85305; 85306; 85379; 85597; 85613; 85730; 86147